=== PATIENT | female | born 1985 | race Two or more races ===

== ENCOUNTER 2020-09-20 17:47 | Emergency (ER) | payer OTHER ==
[2020-09-20 18:05] VITALS: BP 125/77; PULSE 67; TEMP 98.3; BMI 31.6
[2020-09-20] MEDS ORDERED: DIPHTH,PERTUSS(ACELL),TET 0.5 ML DISP.SYRIN IM ONE ×2 (18:25→18:27)
== END 2020-09-20 18:51 | disposition home or self-care (01) ==
LOC: JERFT 17:47
PROC: 0HQGXZZ Repair Left Hand Skin, External Approach (ICD-10-PCS; principal; 2020-09-20)
PROC: 3E0234Z Introduction of Serum, Toxoid and Vaccine into Muscle, Percutaneous Approach (ICD-10-PCS; 2020-09-20)
DX: S61.211A Laceration without foreign body of left index finger without damage to nail, initial encounter (principal)
CPT/HCPCS: 90471; 90715; 99284-25

== ENCOUNTER 2023-02-27 10:06 | Emergency (ER) | payer OTHER ==
[2023-02-27 10:16] VITALS: BMI 36.9
[2023-02-27 11:10] LABS: BASO % 0.5 % (0-2.0); EOS % 2.8 % (0-4.5); HEMATOCRIT 35.6 % (32.4-45.2); HEMOGLOBIN 12.1 GM/dL (10.7-15.3); LYMPH % 14.9 % (8-40); MCH 30.7 pg (25.7-33.7); MCHC 33.9 g/dl (32.0-36.0); MEAN CELL VOLUME 90.3 fl (80-96); MEAN PLT VOLUME 7.8 fl (7.5-11.1); MONO % 7.6 % (3.8-10.2); NEUT % 74.2 % (42.8-82.8); PLATELET COUNT 236 10^3/uL (134-434); RBC 3.94 M/mm3 (3.60-5.2); RDW 13.2 % (11.6-15.6); WHITE BLOOD COUNT 9.5 K/mm3 (4.0-10.0)
[2023-02-27 11:30] LABS: URINE APPEARANCE CLEAR; URINE BILIRUBIN NEGATIVE (NEGATIVE); URINE COLOR YELLOW; URINE GLUCOSE (UA) NEGATIVE (NEGATIVE); URINE KETONE NEGATIVE (NEGATIVE); URINE LEUK ESTERASE NEGATIVE (NEGATIVE); URINE NITRITE NEGATIVE (NEGATIVE); URINE PROTEIN NEGATIVE (NEGATIVE); URINE UROBILINOGEN 0.2 mg/dL (0.2-1.0)
[2023-02-27 11:31] LABS: EPI CELLS 3.8 /uL (0-25.1); HYALINE CASTS 0.12 /uL (0-3.1); URINE BACTERIA 49.4 /uL (0-1359); URINE RBC 83.7 /uL (0-23.9); URINE WBC 2.8 /uL (0-25.8)
[2023-02-27 11:34] LABS: POTASSIUM 3.8 mmol/L (3.5-5.1)
[2023-02-27 11:35] LABS: BLOOD UREA NITROGEN 9.8 mg/dL (7-18)
[2023-02-27 11:36] LABS: ALBUMIN 3.2 g/dl (3.4-5.0)
[2023-02-27 11:39] LABS: CREATININE 0.5 mg/dL (0.55-1.3)
[2023-02-27 11:41] LABS: BILIRUBIN,TOTAL 0.3 mg/dL (0.2-1)
[2023-02-27] MEDS ORDERED: SODIUM CHLORIDE 1,000 ML IV STA (11:58)
[2023-02-27] MEDS ORDERED: ACETAMINOPHEN 1000 MG/100 ML BAG IVPB ONE (11:59)
[2023-02-27] MEDS ORDERED: ACETAMINOPHEN INJECTION 100 ML IVPB ONE (12:02)
[2023-02-27 16:39] VITALS: RESP 20
[2023-02-27 17:20] VITALS: BP 104/59; PULSE 72; TEMP 98.7
== END 2023-02-27 17:23 | disposition home or self-care (01) ==
LOC: JER 10:06
PROC: 3E033NZ Introduction of Analgesics, Hypnotics, Sedatives into Peripheral Vein, Percutaneous Approach (ICD-10-PCS; principal; 2023-02-27)
PROC: 3E0337Z Introduction of Electrolytic and Water Balance Substance into Peripheral Vein, Percutaneous Approach (ICD-10-PCS; 2023-02-27)
DX: O26.891 Other specified pregnancy related conditions, first trimester (principal); R10.84 Generalized abdominal pain; R35.0 Frequency of micturition; Z3A.12 12 weeks gestation of pregnancy
CPT/HCPCS: 36415; 76817-TC; 80053; 81003; 84702; 84703; 85025; 87086; 99284-25

== ENCOUNTER 2023-08-26 12:30 | Inpatient (IN) | payer OTHER ==
[2023-08-26] MEDS: ELECTROLYTE-148 SOLN 500 ML IV ONE (13:00)
[2023-08-26 13:23] LABS: BASO % 0.3 % (0-2.0); EOS % 0.6 % (0-4.5); HEMATOCRIT 37.6 % (32.4-45.2); HEMOGLOBIN 12.6 GM/dL (10.7-15.3); LYMPH % 12.4 % (8-40); MCH 30.1 pg (25.7-33.7); MCHC 33.6 g/dl (32.0-36.0); MEAN CELL VOLUME 89.6 fl (80-96); MEAN PLT VOLUME 8.2 fl (7.5-11.1); MONO % 7.5 % (3.8-10.2); NEUT % 79.2 % (42.8-82.8); PLATELET COUNT 217 10^3/uL (134-434); RDW 15.1 % (11.6-15.6); WHITE BLOOD COUNT 10.5 K/mm3 (4.0-10.0)
[2023-08-26] MEDS: ELECTROLYTE-148 SOLN 1,000 ML IV SCH (13:30)
[2023-08-26 13:32] LABS: INR 0.97 (0.83-1.09)
[2023-08-26 13:34] LABS: ACTIVATED PTT 28.1 SECONDS (25.2-36.5)
[2023-08-26 13:49] LABS: CHLORIDE 108 mmol/L (98-107); POTASSIUM 4.4 mmol/L (3.5-5.1); SODIUM 139 mmol/L (136-145)
[2023-08-26 13:50] LABS: CALCIUM 8.9 mg/dL (8.5-10.1)
[2023-08-26 13:51] LABS: ANION GAP 8 mmol/L (4-13); CO2 22 mmol/L (21-32); GLUCOSE,RANDOM 71 mg/dL (74-106)
[2023-08-26 13:54] LABS: CREATININE 0.6 mg/dL (0.55-1.3)
[2023-08-26] MEDS ORDERED: METOCLOPRAMIDE HCL INJECTION 10 MG/2 ML VIAL ONE (14:18)
[2023-08-26] MEDS ORDERED: ONDANSETRON 4 MG/2 ML VIAL ONE (14:18)
[2023-08-26] MEDS ORDERED: SODIUM CHLORIDE 0.9% P/F 10 ML VIAL IJ ONE (14:18)
[2023-08-26] MEDS ORDERED: OXYTOCIN 10 UNITS/ML VIAL ONE (14:18)
[2023-08-26] MEDS ORDERED: DEXAMETHASONE SOD PHOSPHATE 4 MG/1 ML VIAL ONE (14:18)
[2023-08-26] MEDS ORDERED: KETOROLAC TROMETHAMINE 30 MG/1 ML VIAL ONE (14:18)
[2023-08-26] MEDS ORDERED: ePHEDrine SULFATE 50 MG/1 ML AMPULE ONE (14:25)
[2023-08-26 14:45] LABS: HIV INTERPRETATION NEGATIVE (NEGATIVE)
[2023-08-26 15:15] VITALS: BMI 36.3
[2023-08-26] MEDS: CITRIC ACID/SODIUM CITRATE 30 ML UNIT-DOSE CUP PO ONE (17:15)
[2023-08-26] MEDS ORDERED: morphine SULFATE/PF 1 MG/2 ML (2cc Syringe - QUVA) ONE (17:26)
[2023-08-26] MEDS ORDERED: GLYCOPYRROLATE 0.2 MG/1 ML VIAL ONE (18:09)
[2023-08-26] MEDS ORDERED: OXYTOCIN 20 UNITS in 0.9% NS 20 UNIT/1,000 ML INFUS.BAG IV ONE (18:28)
[2023-08-26] MEDS: OXYTOCIN 20 UNITS in 0.9% NS 20 UNIT/1,000 ML INFUS.BAG IV SCH (19:10)
[2023-08-26] MEDS ORDERED: ONDANSETRON 4 MG/2 ML VIAL IVPUSH PRN (19:12)
[2023-08-26] MEDS ORDERED: METHYLERGONOVINE MALEATE 0.2 MG/1 ML AMP IM PRN (19:14)
[2023-08-26] MEDS: ACETAMINOPHEN 1000 MG/100 ML BAG IVPB PRN (20:10)
[2023-08-27 06:55] LABS: BASO % 0.2 % (0-2.0); EOS % 0.4 % (0-4.5); HEMATOCRIT 33.4 % (32.4-45.2); HEMOGLOBIN 11.2 GM/dL (10.7-15.3); LYMPH % 9.7 % (8-40); MCHC 33.7 g/dl (32.0-36.0); MEAN CELL VOLUME 89.1 fl (80-96); MEAN PLT VOLUME 7.7 fl (7.5-11.1); MONO % 6.8 % (3.8-10.2); NEUT % 82.9 % (42.8-82.8); PLATELET COUNT 171 10^3/uL (134-434); RBC 3.75 M/mm3 (3.60-5.2); RDW 14.9 % (11.6-15.6); WHITE BLOOD COUNT 12.3 K/mm3 (4.0-10.0)
[2023-08-27] MEDS ORDERED: oxyCODONE HCL 5 MG TABLET PO PRN (07:14)
[2023-08-27] MEDS: IBUPROFEN 600 MG TABLET (FP) PO PRN (17:42)
[2023-08-27] MEDS: SIMETHICONE 80 MG TAB.CHEW (FP) PO PRN (17:42)
[2023-08-27] MEDS: oxyCODONE HCL 5 MG TABLET PO PRN (18:22)
[2023-08-27] MEDS: ACETAMINOPHEN 325 MG TABLET (FP) PO PRN (20:22)
[2023-08-28] MEDS: BISACODYL 10 MG SUPP.RECT RC PRN (01:53)
[2023-08-28 23:20] VITALS: RESP 18
[2023-08-29 08:04] LABS: BASO % 0.4 % (0-2.0); EOS % 2.2 % (0-4.5); HEMATOCRIT 32.1 % (32.4-45.2); HEMOGLOBIN 10.8 GM/dL (10.7-15.3); LYMPH % 17.7 % (8-40); MCH 30.2 pg (25.7-33.7); MCHC 33.6 g/dl (32.0-36.0); MEAN CELL VOLUME 89.7 fl (80-96); MEAN PLT VOLUME 8.5 fl (7.5-11.1); MONO % 7.1 % (3.8-10.2); NEUT % 72.6 % (42.8-82.8); PLATELET COUNT 191 10^3/uL (134-434); RBC 3.58 M/mm3 (3.60-5.2); RDW 15.1 % (11.6-15.6); WHITE BLOOD COUNT 7.9 K/mm3 (4.0-10.0)
[2023-08-29 08:58] VITALS: BP 110/69; PULSE 74; TEMP 98.3
== END 2023-08-29 13:38 | disposition home or self-care (01) | DRG 540 ==
LOC: JLDR 12:30 → J3W 20:43
PROVIDERS: ADMIT Obstetrics & Gynecology Obstetrics; ATTEND Obstetrics & Gynecology Obstetrics
PROC: 10D00Z1 Extraction of Products of Conception, Low, Open Approach (ICD-10-PCS; principal; 2023-08-26)
DX: O41.03X0 Oligohydramnios, third trimester, not applicable or unspecified (principal); Z3A.38 38 weeks gestation of pregnancy; O34.211 Maternal care for low transverse scar from previous cesarean delivery; N85.8 Other specified noninflammatory disorders of uterus; Z37.0 Single live birth
CPT/HCPCS: 36415; 59409; 80048; 85025; 85610; 85730; 86780; 86850; 86900; 86901; 87389; 88307-TC; J0131